=== PATIENT | female | born 1990 | race Caucasian/White ===

== ENCOUNTER 2017-03-04 11:23 | Emergency (ER) | payer MEDICAID ==
[~2017-03-04] VITALS: Ht 162.6 cm; Wt 69.0 kg
[~2017-03-04 11:23] MED LIST: CIPR500T4 PO
[2017-03-04 11:27] VITALS: Ht 162.6 cm; Wt 69.0 kg
--- NOTE | 2017-03-04 12:44 | ERD ---
ER Documentation Chief Complaint Date/Time DATE: 03/04/17 TIME: 12:43 Chief Complaint left flank pain, pain with urination for one week HPI 26-year-old female comes in with Left-sided back pain 1 week, headaches, body aches. She describes as diffuse in the left side radiating to her lower back, achy. She has not had any documented fevers but reports tactile fevers and nausea. Denies vomiting, diarrhea. Denies abdominal pain. ROS All systems reviewed and are negative except as per history of present illness. Medications Home Meds Active Scripts Ibuprofen* (Motrin*) 600 Mg Tab, 600 MG PO Q6, #30 TAB Prov:GIA AGUILAR PA-C 03/04/17 Ciprofloxacin Hcl* (Ciprofloxacin Hcl*) 500 Mg Tablet, 500 MG PO BID for 10 Days , TAB Prov:REJI GARDNER PA-C 07/17/15 Allergies Allergies: Coded Allergies: No Known Allergy (Unverified , 03/04/17) Physical Exam Vitals Vital Signs Date Time Temp Pulse Resp B/P Pulse Ox O2 Delivery O2 Flow Rate FiO2 03/04/17 11:27 98.9 78 18 121/50 97 Physical Exam General: Well-developed, well-nourished. The patient appears in no acute distress. HEENT: Head is normocephalic, atraumatic. No scleral icterus. Lungs: Clear to auscultation. Normal air movement. Heart: Regular rate and rhythm. S1 and S2 are normal. No murmurs, gallops, or rubs. Abdomen: Soft, nontender, nondistended. Bowel sounds are normoactive. No CVA tenderness. Back: No rashes, no midline tenderness, soft tissue swelling on the left and right in the bilateral lumbar regions. Extremities: No clubbing or cyanosis. Normal pulses. Moving extremities x 4. No weakness. Neurologic: Alert and oriented 3. No focal deficits. Skin: Normal turgor. No rash or lesions. Result Diagram: 03/04/17 1345 03/04/17 1345 Results 24 hrs Laboratory Tests Test 03/04/17 12:21 03/04/17 13:45 Urine Color YELLOW Urine Clarity CLEAR Urine pH 7.0 Urine Specific [place] 1.016 Urine Ketones NEGATIVEmg/dL Urine Nitrite NEGATIVEmg/dL Urine Bilirubin NEGATIVEmg/dL Urine Urobilinogen NEGATIVEmg/dL Urine Leukocyte Esterase NEGATIVELeu/ul Urine Hemoglobin NEGATIVEmg/dL Urine Glucose NEGATIVEmg/dL Urine Total Protein NEGATIVEmg/dl White Blood Count 9.610^3/ul Red Blood Count 3.8810^6/ul Hemoglobin 12.3g/dl Hematocrit 36.7% Mean Corpuscular Volume 94.6fl Mean Corpuscular Hemoglobin 31.7pg Mean Corpuscular Hemoglobin Concent 33.5g/dl Red Cell Distribution Width 13.2% Platelet Count 55183^3/UL Mean Platelet Volume 11.0fl Neutrophils % 45.9% Lymphocytes % 42.7% Monocytes % 6.5% Eosinophils % 3.8% Basophils % 0.8% Nucleated Red Blood Cells % 0.0/100WBC Neutrophils # (Manual) 4.410^3/ul Lymphocytes # 4.110^3/ul Monocytes # 0.610^3/ul Eosinophils # 0.410^3/ul Basophils # 0.110^3/ul Nucleated Red Blood Cells # 0.010^3/ul Sodium Level 141mmol/L Potassium Level 4.2mmol/L Chloride Level 107mmol/L Carbon Dioxide Level 29mmol/L Anion Gap 9 Blood Urea Nitrogen 11mg/dl Creatinine 0.73mg/dl Glucose Level 85mg/dl Calcium Level 9.4mg/dl Total Bilirubin 0.4mg/dl Direct Bilirubin 0.00mg/dl Indirect Bilirubin 0.4mg/dl Aspartate Amino Transf (AST/SGOT) 32IU/L Alanine Aminotransferase (ALT/SGPT) 49IU/L Alkaline Phosphatase 64IU/L Total Protein 7.8g/dl Albumin 4.2g/dl Globulin 3.60g/dl Albumin/Globulin Ratio 1.16 Lipase 55U/L DIAGNOSTIC IMAGING REPORT Patient: KI VARGAS : 1990 Age: 26 Sex: F MR #: [id number] DOS: 03/04/17 1324 Ordering MD: GIA AGUILAR PA-C Location: [facility] Room/Bed: PROCEDURE: Renal Ultrasound CLINICAL INDICATION: Flank pain TECHNIQUE: Evaluation of the kidneys and bladder was performed as well with panda scale and color and Doppler evaluation using a curved array transducer. The images were reviewed on a high-resolution PACS workstation. COMPARISON: No prior studies are available for comparison. FINDINGS: The kidneys are well visualized. No renal masses or calcifications are seen. There is no hydronephrosis. The right kidney measures 9.6 cm in length. The left kidney measures 10.9 cm in length. No perinephric fluid collection is seen. The bladder is decompressed and collapsed. IMPRESSION: 1. Unremarkable renal ultrasound. RPTAT: KK .Deandre Wright MD, MD Date Time Electronically viewed and signed by .Deandre Wright MD, MD on 2016 13:48 .B/ CC: IGA AGUILAR PA-C Procedures/[facility] 26-year-old female comes in with back pain, patient has diffuse soft tissue back pain, possibly musculoskeletal. She complains of headache is full states that she has had the same symptoms occur approximately every year. Blood work shows a normal white blood cell count, no electron abnormality is, normal renal function, renal ultrasound was unremarkable. Patient's back pain I suspect is most likely myalgias, possibly from a viral syndrome. I doubt acute coronary syndrome, dissection, kidney stones, pyelonephritis. Departure Diagnosis: Primary Impression: Back pain Condition: Good GIA AGUILAR PA-C Mar 04, 2017 12:44
[2017-03-04 12:58] LABS: ADD UMIC NO; UR ASCORBIC ACID NEGATIVE (NEGATIVE); UR BILIRUBIN (Dip) NEGATIVE (NEGATIVE); UR BLOOD (Dip) NEGATIVE (NEGATIVE); UR CLARITY CLEAR (CLEAR); UR COLOR YELLOW (YELLOW); UR GLUCOSE (Dip) NEGATIVE (NEGATIVE); UR KETONES (Dip) NEGATIVE (NEGATIVE); UR LEUKOCYTE ESTERASE (Dip) NEGATIVE Leu/ul (NEGATIVE); UR NITRITE (Dip) NEGATIVE (NEGATIVE); UR SPECIFIC GRAVITY (Dip) 1.016 (1.003-1.030); UR TOTAL PROTEIN (Dip) NEGATIVE (NEGATIVE); UR UROBILINOGEN (Dip) NEGATIVE (NEGATIVE)
--- NOTE | 2017-03-04 13:48 | RADRPT ---
PROCEDURE: Renal Ultrasound CLINICAL INDICATION: Flank pain TECHNIQUE: Evaluation of the kidneys and bladder was performed as well with panda scale and color and Doppler evaluation using a curved array transducer. The images were reviewed on a high-resoluti on PACS workstation. COMPARISON: No prior studies are available for comparison. FINDINGS: The kidneys are well visualized. No renal masses or calcifications are seen. There is no hydronephr osis. The right kidney measures 9.6 cm in length. The left kidney measures 10.9 cm in length. No perinephric fluid collection is seen. The bladder is decompressed and collapsed. IMPRESSION: 1. Unremarkable renal ultrasound. RPTAT: KK .Deandre Wright MD, MD Date Time Electronically viewed and signed by .Deandre Wright MD, MD on 03/04/2017 13:48 .B/
[2017-03-04 14:03] LABS: BASOPHIL # 0.1 10^3/ul (0.0-0.1); BASOPHILS % 0.8 % (0.0-2.0); EOSINOPHILS # 0.4 10^3/ul (0.0-0.5); EOSINOPHILS % 3.8 % (0.0-7.0); HEMATOCRIT 36.7 % (37.0-47.0); HEMOGLOBIN 12.3 g/dl (12.0-16.0); LYMPHOCYTES # 4.1 10^3/ul (0.8-2.9); LYMPHOCYTES % 42.7 % (15.0-51.0); MEAN CORPUSCULAR HEMOGLOBIN 31.7 pg (29.0-33.0); MEAN CORPUSCULAR HGB CONC 33.5 g/dl (32.0-37.0); MEAN CORPUSCULAR VOLUME 94.6 fl (82.0-101.0); MONOCYTE # 0.6 10^3/ul (0.3-0.9); MONOCYTES % 6.5 % (0.0-11.0); NEUTROPHILS % 45.9 % (39.0-77.0); PLATELET COUNT 254 10^3/UL (140-415); RED BLOOD COUNT 3.88 10^6/ul (4.20-5.40); RED CELL DISTRIBUTION WIDTH 13.2 % (11.5-14.5); WHITE BLOOD COUNT 9.6 10^3/ul (4.8-10.8)
[2017-03-04 14:23] LABS: ALBUMIN 4.2 g/dl (3.3-4.9); ALBUMIN/GLOBULIN RATIO 1.16; BILIRUBIN,INDIRECT 0.4 mg/dl (0-1.1); BILIRUBIN,TOTAL 0.4 mg/dl (0.2-1.3); CALCIUM 9.4 mg/dl (8.4-10.2); CREATININE 0.73 mg/dl (0.44-1.00); POTASSIUM 4.2 mmol/L (3.5-5.1); TOTAL PROTEIN 7.8 g/dl (6.1-8.1)
[2017-03-04] MEDS ORDERED: IBUP-1542 PO (14:42)
[2017-03-04 14:50] VITALS: BP 120/50; PULSE 70; RESP 17; TEMP 98.9
== END 2017-03-04 14:53 | disposition home or self-care (01) ==
LOC: FTE 11:23
DX: M54.5 Low back pain (principal)
CPT/HCPCS: 36415; 76775; 80053; 81003; 83690; 85025; Z7502